=== PATIENT | male | born 1955 | race Two or more races ===

== ENCOUNTER 2018-06-26 21:35 | Emergency (ER) | payer MEDICAID ==
[~2018-06-26] VITALS: Ht 170.2 cm; Wt 87.1 kg
[2018-06-26 22:21] LABS: Basophils # (auto) 0.1 uL; Basophils % (auto) 0.7 % (0.0-2.0); Eosinophils # (auto) 0.1 uL; Eosinophils % (auto) 1.1 % (0.0-7.0); Hematocrit 43.2 % (41.0-53.0); Hemoglobin 15.2 g/dL (13.5-17.5); Lymphocytes # (auto) 2.6 uL; Lymphocytes % (auto) 24.3 % (10.0-50.0); Mean Corpuscular Hgb Conc. 35.1 g/dL (32.0-36.0); Mean Corpuscular Volume 88.4 fL (80.0-100.0); Monocytes % (auto) 8.9 % (0.0-12.0); Neutrophils # (auto) 7.1 uL; Nucleated Red Blood Cells % 0.1 %; Platelet Count (auto) 209 10^3/uL (140-450); Red Blood Cells 4.89 10^6/uL (4.5-5.90); Red Cell Distribution Width 13.8 % (11.8-14.3); White Blood Cell 10.9 10^3/uL (4.4-10.8)
[2018-06-26 22:40] LABS: Urine Bacteria NONE SEEN /hpf (None Seen); Urine Blood Negative /uL (Negative); Urine Mucus FEW (None Seen); Urine Specific Gravity 1.023 (1.001-1.035); Urine WBC 1 /hpf (0 - 3)
[2018-06-26 22:44] LABS: Albumin 3.9 g/dL (3.4-5.0); BUN/Creatinine Ratio 18.3; Calcium 8.8 mg/dL (8.5-10.1); Potassium 3.6 mmol/L (3.5-5.1)
[2018-06-26 22:46] LABS: Bilirubin, Total 0.4 mg/dL (0.2-1.0); Total Protein 7.5 g/dL (6.4-8.2)
[2018-06-27 08:05] VITALS: BP 144/77
[2018-06-27] MEDS ORDERED: HYDROcodone-ACET 10/325MG TAB PO ONE (08:15)
== END 2018-06-27 09:02 | disposition home or self-care (01) ==
LOC: ER 21:44
DX: R51 Headache (principal); I10 Essential (primary) hypertension; E11.9 Type 2 diabetes mellitus without complications; E78.5 Hyperlipidemia, unspecified; Z90.89 Acquired absence of other organs
CPT/HCPCS: 36415; 70450; 80053; 81001; 82962; 85025

== ENCOUNTER 2020-11-16 11:45 | Emergency (ER) | payer MEDICAID ==
[~2020-11-16] VITALS: Ht 170.2 cm; Wt 89.8 kg
[2020-11-16 12:42] VITALS: BP 147/91
[2020-11-16] MEDS ORDERED: traMADol HCL 50 MG TAB PO ONE (13:30)
== END 2020-11-16 14:19 | disposition home or self-care (01) ==
LOC: ER 11:45
DX: S09.90XA Unspecified injury of head, initial encounter (principal); M79.642 Pain in left hand; I10 Essential (primary) hypertension; E11.9 Type 2 diabetes mellitus without complications; E78.5 Hyperlipidemia, unspecified; Z90.49 Acquired absence of other specified parts of digestive tract; W11.XXXA Fall on and from ladder, initial encounter; Y93.89 Activity, other specified; Y92.89 Other specified places as the place of occurrence of the external cause; Y99.8 Other external cause status
CPT/HCPCS: 70450; 73130

== ENCOUNTER 2022-01-31 22:13 | Emergency (ER) | payer MEDICARE, MEDICAID ==
[~2022-01-31] VITALS: Ht 170.2 cm; Wt 84.1 kg
[2022-02-01] MEDS ORDERED: IOHEXOL 350 MG/ML 100ML IJ ONE (00:01)
[2022-02-01 01:18] LABS: Basophils # (auto) 0.1 10 ^3/uL (0-0.2); Eosinophils # (auto) 0.1 10 ^3/uL (0-0.8); Eosinophils % (auto) 1.1 % (0.0-7.0); Hematocrit 44.5 % (41.0-53.0); Hemoglobin 15.7 g/dL (13.5-17.5); Lymphocytes # (auto) 2.2 10 ^3/uL (0.4-5.4); Lymphocytes % (auto) 22.7 % (10.0-50.0); Mean Corpuscular Hemoglobin 30.9 pg (28.0-32.0); Mean Corpuscular Hgb Conc. 35.3 g/dL (32.0-36.0); Mean Corpuscular Volume 87.6 fL (80.0-100.0); Monocytes # (auto) 0.6 10 ^3/uL (0-1.3); Monocytes % (auto) 6.3 % (0.0-12.0); Neutrophils # (auto) 6.7 10 ^3/uL (1.6-8.6); Neutrophils % (auto) 68.9 % (37.0-80.0); Nucleated Red Blood Cells % 0.1 %; Red Blood Cells 5.08 10^6/uL (4.5-5.90); Red Cell Distribution Width 12.9 % (11.8-14.3); White Blood Cell 9.8 10^3/uL (4.4-10.8)
[2022-02-01 01:39] LABS: BUN/Creatinine Ratio 20.2; Calcium 8.4 mg/dL (8.5-10.1); Potassium 3.9 mmol/L (3.5-5.1)
[2022-02-01 01:42] LABS: Bilirubin, Total 0.4 mg/dL (0.2-1.0); Total Protein 7.1 g/dL (6.4-8.2)
[2022-02-01] MEDS ORDERED: HYDROcodone-ACET 5/325MG TAB PO ONE (03:15)
[2022-02-01] MEDS ORDERED: KETOROLAC TROMETH 60MG/2ML VIAL IM ONE (03:30)
[2022-02-01] MEDS ORDERED: KETOROLAC TROMETH 30 MG/ML 1ML VIAL IV ONE (03:30)
[2022-02-01 04:40] VITALS: BP 136/87
== END 2022-02-01 04:46 | disposition home or self-care (01) ==
LOC: ER 22:13
DX: R51.9 Headache, unspecified (principal); I10 Essential (primary) hypertension; E78.5 Hyperlipidemia, unspecified
CPT/HCPCS: 36415; 70450; 70496; 80053; 84484; 85025; 96374; 99284; J1885; Q9967

== ENCOUNTER 2024-12-20 16:16 | Emergency (ER) | payer MEDICAID, OTHER ==
[~2024-12-20] VITALS: Ht 170.2 cm; Wt 82.2 kg
--- NOTE | 2024-12-20 17:20 | DVH ---
EXAM: CT HEAD WITHOUT CONTRAST INDICATION: Severe midline headache TECHNIQUE: CT of the head without intravenous contrast. Radiation Dose Information: CT Dose: CTDI volume is 55.64 mGy. Dose-length product is 895.33 mGy*cm The dose indicators for CT are the volume Computed Tomography (CT) Dose Index (CTDIvol) and the Dose Length Product (DLP), and are measured in units of mGy and mGy-cm, respectively. These indicators are not patient dose, but values generated from the CT scanner acquisition factors. The report includes radiation exposure data for exposures received during this examination. COMPARISON: ANGIO HEAD/NECK on DOS: 01/31/22, HEAD WITHOUT CONTRAST on DOS: 01/31/22, ANGHEDNECK on DOS : 01/31/22 FINDINGS: There is no evidence of acute intracranial hemorrhage, extra-axial collection, mass effect, midline s hift, herniation or hydrocephalus. Grouping of radiopaque material on the right in the supraclinoid a jaya most likely from aneurysm embolization. No subarachnoid or subdural hemorrhage. No ventricular hemorrhage noted. The ventricles, sulci and cisterns are age appropriate. The nava-white differentiation is intact. Patchy periventricular and subcortical white matter hypoattenuation is nonspecific but may be related to small vessel ischemic disease. The visualized paranasal sinuses and mastoid air cells are clear. The surrounding soft tissues and osseous structures are unremarkable. IMPRESSION: 1. No acute intracranial hemorrhage. 2. Findings suggesting previous embolization of cerebral aneurysm. HS:Y
[2024-12-20 17:52] LABS: Hematocrit 45.1 % (41.0-53.0); Hemoglobin 16.2 g/dL (13.5-17.5); Mean Corpuscular Hemoglobin 31.8 pg (28.0-32.0); Mean Corpuscular Volume 88.5 fL (80.0-100.0); Nucleated Red Blood Cells % 0.2 %
[2024-12-20 18:00] LABS: Chloride 106 mmol/L (98-107); Potassium 4.1 mmol/L (3.5-5.1); Sodium 140 mmol/L (136-145)
[2024-12-20 18:01] LABS: Anion Gap 9 (5-15); Calcium 8.8 mg/dL (8.7-10.4); Carbon Dioxide 25 mmol/L (20-31)
[2024-12-20 18:06] LABS: BUN/Creatinine Ratio 11.9 (10.0-20.0); Blood Urea Nitrogen 14 mg/dL (9-23)
[2024-12-20 18:11] LABS: Glucose 280 mg/dL (74-106)
[2024-12-20] MEDS: ONDANSETRON ODT 4 MG TAB PO ONE (18:13)
[2024-12-20] MEDS: HYDROcodone-ACET 10/325MG TAB PO ONE (18:13)
[2024-12-20 18:23] LABS: INR 0.97 (0.9-1.15); Prothrombin Time 10.3 sec (9.3-11.8)
--- NOTE | 2024-12-20 20:10 | ED.PDOC ---
History of Present Illness HPI Comments 69 y/o M presents with c/c continuous headache with associated intermittent dizziness and nausea for the past two days. Patient states the symptoms came on and has been relatively unrelenting. Patient states it is midline pain throughout his skull. Patient states a history of cerebral aneurysm. Patient d enies any fever or vomiting but states intermittent nausea. Vital signs were stable. Chief Complaint: Headache Time Seen by MD: 16:40 Primary Care Provider: DR. ELENA Reviewed Notes: Nurses Notes, Medications, Allergies Allergies: Coded Allergies: NO KNOWN ALLERGIES (Unverified , 11/08/14) Information Source: Patient Mode of Arrival: Ambulatory Severity: Moderate Timing: Weeks Duration: Intermittent Prehospital treatment: None Past Medical History PAST MEDICAL HISTORY: High Lipids, HTN Surgical History: Appendectomy Family History Family History: Reviewed,noncontributory to illness Social History Smoker: Non-Smoker Alcohol: Denies ETOH Use Drugs: Denies Drug Use Lives In: Home Constitutional: denies: chills, diaphoresis, fatigue, fever, malaise, sweats, weakness, others EENTM: denies: blurred vision, double vision, ear bleeding, ear discharge, ear drainage, ear pain, ear ringing, eye pain, eye redness, hearing loss, mouth pain, mouth swelling, nasal discharge, nose bleeding, nose congestion, nose pain, photophobia, tearing, throat pain, throat swelling, voice changes, others Respiratory: denies: cough, hemoptysis, orthopnea, SOB at rest, shortness of breath, SOB with excertion, stridor, wheezing, others Cardiovascular: denies: chest pain, dizzy spells, diaphoresis, Dyspnea on exertion, edema, irregular heart beat, left arm pain, lightheadedness, palpitations, PND, syncope, others Gastrointestinal: reports: nausea; denies: abdomen distended, abdominal pain, blood streaked bowels, constipated, diarrhea, dysphagia, difficulty swallowing, hematemesis, melena, poor appetite, poor fluid intake, rectal bleeding, rectal pain, vomiting, others Genitourinary: denies: burning, dysuria, flank pain, frequency, hematuria, incontinence, penile discharge, penile sore, pain, testicle pain, testicle swelling, urgency, others Neurological: reports: headache; denies: dizziness, fainting, left sided numbness, left sided weakness, numbness, paresthesia, pre-existing deficit, right sided numbness, right sided weakness, seizure, speech problems, tingling, tremors, weakness, others Musculoskeletal: denies: back pain, gout, joint pain, joint swelling, muscle pain, muscle stiffness, neck pain, others Integumetry: denies: bruises, change in color, change in hair/nails, dryness, laceration, lesions, lumps, rash, wounds, others Allergic/Immunocompromised: denies: Difficulty Healing, Frequent Infections, Hives, Itching, others Hematologic/Lymphatic: denies: anemia, blood clots, easy bleeding, easy bruising, swollen glands, others Endocrine: denies: excessive hunger, excessive sweating, excessive thirst, excessive urination, flushing, intolerance to cold, intolerance to heat, unexplained weight gain, unexplained weight loss, others Psychiatric: denies: anxiety, bipolar disorder, depression, hopeless, panic disorder, schizophrenia, sleepless, suicidal, others All Other Systems: Reviewed and Negative (As per ) Physical Exam General Appearance: Moderate Distress (Moderate distress due to headache pain concerns.), Normal HEENT: Head (Unremarkable cranial evaluation. No signs of trauma. No skull depressions or deformities. PERRLA, EOMI.), Normal ENT Inspection, Pharynx Normal, TMs Normal Neck: Full Range of Motion, Non-Tender, Normal, Normal Inspection Respiratory: Chest Non-Tender, Lungs Clear, No Accessory Muscle Use, No Respiratory Distress, Normal Breath Sounds Cardiovascular: No Edema, No JVD, No Murmur, No Gallop, Normal Peripheral Pulses, Regular Rate/Rhythm Breast Exam: Deferred Gastrointestinal: No Organomegaly, Non Tender, No Pulsatile Mass, Normal Bowel Sounds, Soft Genitalia: Deferred Pelvic: Deferred Rectal: Deferred Extremities: No calf tenderness, Normal capillary refill, Normal inspection, Normal range of motion, Non-tender, No pedal edema Neurologic: Alert, No Motor Deficits, Normal Affect, Normal Mood, No Sensory Deficits Cerebellar Function: NOT DONE Reflexes: NOT DONE Skin: Dry, Normal Color, Warm Lymphatic: No Adenopathy Was a procedure done? Was a procedure done?: No Differential Dx Considerations may include: tension headache, migraines, electrolyte imbalance, dehydration, URI, viral syndrome, intracranial bleed, CVA, TIA, among others X-Ray, Labs, Meds, VS Vital Signs Date Time Temp Pulse Resp B/P (MAP) Pulse Ox O2 Delivery O2 Flow Rate FiO2 12/20/24 18:17 98.1 67 18 127/77 (94) 97 98.1 12/20/24 18:17 67 18 97 Room Air 12/20/24 16:18 98.5 66 18 122/68 97 98.5 Lab Test 12/20/24 17:21 Range/Units White Blood Count 8.1 4.4-10.8 10^3/uL Red Blood Count 5.10 4.5-5.90 10^6/uL Hemoglobin 16.2 13.5-17.5 g/dL Hematocrit 45.1 41.0-53.0 % Mean Corpuscular Volume 88.5 80.0-100.0 fL Mean Corpuscular Hemoglobin 31.8 28.0-32.0 pg Mean Corpuscular Hemoglobin Concent 36.0 32.0-36.0 g/dL Red Cell Distribution Width 13.1 11.8-14.3 % Platelet Count 205 140-450 10^3/uL Mean Platelet Volume 8.2 6.9-10.8 fL Neutrophils (%) (Auto) 67.6 37.0-80.0 % Lymphocytes (%) (Auto) 24.6 10.0-50.0 % Monocytes (%) (Auto) 6.2 0.0-12.0 % Eosinophils (%) (Auto) 0.9 0.0-7.0 % Basophils (%) (Auto) 0.7 0.0-2.0 % Neutrophils # (Auto) 5.5 1.6-8.6 10 ^3/uL Lymphocytes # (Auto) 2.0 0.4-5.4 10 ^3/uL Monocytes # (Auto) 0.5 0-1.3 10 ^3/uL Eosinophils # (Auto) 0.1 0-0.8 10 ^3/uL Basophils # (Auto) 0.1 0-0.2 10 ^3/uL Nucleated Red Blood Cells 0.2 % Prothrombin Time 10.3 9.3-11.8 sec Prothrombin Time INR 0.97 0.9-1.15 Sodium Level 140 136-145 mmol/L Potassium Level 4.1 3.5-5.1 mmol/L Chloride Level 106 98-107 mmol/L Carbon Dioxide Level 25 20-31 mmol/L Anion Gap 9 5-15 Blood Urea Nitrogen 14 9-23 mg/dL Creatinine 1.18 0.700-1.30 mg/dL Glomerular Filtration Rate Calc 68 >90 mL/min BUN/Creatinine Ratio 11.9 10.0-20.0 Serum Glucose 280 H 74-106 mg/dL Calcium Level 8.8 8.7-10.4 mg/dL Current Medications Medications (Trade) Dose Ordered Sig/Jeanette Route Start Time Stop Time Status Last Admin Acetaminophen/ Hydrocodone Bitart ([place] 10/325MG Tab) 1 tab ONCE ONCE PO 12/20/24 16:45 12/20/24 16:46 DC 12/20/24 18:13 Ondansetron HCl (Zofran Po) 4 mg ONCE ONCE PO 12/20/24 16:45 12/20/24 16:46 DC 12/20/24 18:13 [place] [id number] Ph: [phone] DIAGNOSTIC IMAGING Diagnostic Imaging Report : [id number] Signed PATIENT: RADHA WELCH ACCT: [id number] UNIT: [id number] : 1955 LOC: ER ROOM / BED: / AGE / SEX: 69 / M ADM STATUS: REG ER SERVICE 41 ORDERING PHYSICIAN: QUINCY RUFF PAC PROCEDURE(s): HWOCT - HEAD WITHOUT CONTRAST REASON: Severe midline headache ORDER NUMBER(s): [id number], ACCESSION NUMBER(s): [id number] EXAM: CT HEAD WITHOUT CONTRAST INDICATION: Severe midline headache TECHNIQUE: CT of the head without intravenous contrast. Radiation Dose Information: CT Dose: CTDI volume is 55.64 mGy. Dose-length product is 895.33 mGy*cm The dose indicators for CT are the volume Computed Tomography (CT) Dose Index (CTDIvol) and the Dose Length Product (DLP), and are measured in units of mGy and mGy-cm, respectively. These indicators are not patient dose, but values generated from the CT scanner acquisition factors. The report includes radiation exposure data for exposures received during this examination. COMPARISON: ANGIO HEAD/NECK on DOS: 01/31/22, HEAD WITHOUT CONTRAST on DOS: 01/31/22, TAN on DOS: 01/31/22 FINDINGS: There is no evidence of acute intracranial hemorrhage, extra-axial collection, mass effect, midline shift, herniation or hydrocephalus. Grouping of radiopaque material on the right in the supraclinoid area most likely from aneurysm embolization. No subarachnoid or subdural hemorrhage. No ventricular hemorrhage noted. The ventricles, sulci and cisterns are age appropriate. The nava-white differentiation is intact. Patchy periventricular and subcortical white matter hypoattenuation is nonspecific but may be related to small vessel ischemic disease. The visualized paranasal sinuses and mastoid air cells are clear. The surrounding soft tissues and osseous structures are unremarkable. IMPRESSION: 1. No acute intracranial hemorrhage. 2. Findings suggesting previous embolization of cerebral aneurysm. HS:Y ATED BY: DEMOND GARRISON Jr., DO DICTATED DATE/TIME: 12/20/241716 SIGNED BY: DEMOND GARRISON Jr., SIGNED DATE/TIME: 12/20/241716 CC: X-Ray, Labs, Meds, VS Comment All studies performed the ED were evaluated by me personally. Serum evaluation and urinalysis was unremarkable for any systemic concerns. Patient did have an elevated blood sugar which may be related to a diabetic concern. CT study of the head was unremarkable for any acute concerns. Prior cerebral aneurysm was noted. Patient had good relief of symptoms status post medication dispensed. Advised patient that if he continues to have headache concerns, he will need to follow up with the primary care provider for evaluation and management. Time of 1ST Reevaluation: 20:33 Reevaluation 1ST: Improved Consultation: PCP Patient Education/Counseling: Diagnosis, Treatment Family Education/Counseling: Diagnosis, Treatment, No Family Present SEPSIS Sepsis Screen Date sepsis recognized/suspect: Dec 20, 2024 Time Sepsis recognized/suspect: 1618 Recent Procedure: No On Antibiotic Therapy: No Respiratory Rate >20: No Heart Rate >90: No Temp<36 C (96.8 F) or >38.3 C: No SBP <90 or MAP <65 mmHG: No New Acute Mental Status Change: No Is the patient on CPAP, BIPAP,: No Physician Orders Head Without Contrast (12/20/24 16:42) Vital Signs Date Time Temp Pulse Resp B/P (MAP) Pulse Ox O2 Delivery O2 Flow Rate FiO2 12/20/24 18:17 98.1 67 18 127/77 (94) 97 98.1 12/20/24 18:17 67 18 97 Room Air 12/20/24 16:18 98.5 66 18 122/68 97 98.5 Laboratory Tests Test 12/20/24 17:21 White Blood Count 8.1 10^3/uL (4.4-10.8) Medications Medications Dose Ordered Sig/Jeanette Route Start Time Stop Time Status Last Admin Dose Admin Acetaminophen/ Hydrocodone Bitart 1 tab ONCE ONCE PO 12/20/24 16:45 12/20/24 16:46 DC 12/20/24 18:13 Ondansetron HCl 4 mg ONCE ONCE PO 12/20/24 16:45 12/20/24 16:46 DC 12/20/24 18:13 Departure 1 Departure Time of Disposition: 20:33 Impression: Primary Impression: Headache Additional Impression: Hyperglycemia Disposition: 01 HOME / SELF CARE / HOMELESS Condition: Stable Additional Instructions: Advised patient utilize Tylenol and or Motrin as needed for headaches in the future. If symptoms continue, patient will need to follow up with the primary care provider for evaluation and management. Discharged With: Self, Friend Critical Care Note Critical Care Time?: No Stability Stability form required: No Heart Score Heart Score: Heart Score Response (Comments) Value History N/A 0 EKG N/A 0 Age N/A 0 Risk Factors N/A 0 Troponin N/A 0 Total 0 I personally scribed for QUINCY RUFF PAC ([email or web address]) on 12/20/24 at 20:10. Electronically submitted by Tra Meredith ([email or web address]). QUINCY RUFF PAC Dec 20, 2024 20:10
[2024-12-20 20:57] VITALS: BP 119/81; PULSE 64; RESP 17; TEMP 98; O2SAT 99
== END 2024-12-20 21:00 | disposition home or self-care (01) ==
LOC: ER 16:16
DX: R51.9 Headache, unspecified (principal); R73.9 Hyperglycemia, unspecified; I10 Essential (primary) hypertension; Z90.49 Acquired absence of other specified parts of digestive tract; Z86.2 Personal history of diseases of the blood and blood-forming organs and certain disorders involving the immune mechanism
CPT/HCPCS: 36415; 70450; 80048; 85025; 85610; 99284; Q0162